=== PATIENT | male | born 2000 | race Caucasian/White ===

== ENCOUNTER 2019-07-18 13:44 | Emergency (ER) | payer OTHER ==
[~2019-07-18] VITALS: Ht 193 cm; Wt 68.0 kg
== END 2019-07-18 15:23 | disposition home or self-care (01) ==
LOC: ED 13:44
DX: S61.011A Laceration without foreign body of right thumb without damage to nail, initial encounter (principal); W26.8XXA Contact with other sharp object(s), not elsewhere classified, initial encounter; Y93.89 Activity, other specified; Y92.89 Other specified places as the place of occurrence of the external cause; Y99.8 Other external cause status